=== PATIENT | male | born 1990 | race African-American/Black ===

== ENCOUNTER 2016-12-11 20:14 | Emergency (ER) | payer OTHER, MEDICAID ==
[~2016-12-11] VITALS: Ht 165.1 cm; Wt 69.0 kg
[2016-12-11 20:33] VITALS: BP 128/61
== END 2016-12-12 00:20 | disposition left against medical advice (07) ==
LOC: ER 12-12 00:19
DX: Z53.21 Procedure and treatment not carried out due to patient leaving prior to being seen by health care provider (principal)

== ENCOUNTER 2017-09-27 22:26 | Emergency (ER) | payer MEDICAID, OTHER ==
[~2017-09-27] VITALS: Ht 177.8 cm; Wt 73.0 kg
[2017-09-27 23:32] LABS: BASOPHILS % 0.8 % (0.0-2.0); EOSINOPHILS % 0.2 % (0.0-5.0); HEMATOCRIT. 43.8 % (42.0-52.0); HEMOGLOBIN. 14.8 g/dL (14.0-18.0); MEAN CORPUSCULAR HEMOGLOBIN 30.2 pg (28.0-32.0); MEAN CORPUSCULAR VOLUME 89.2 fL (80.0-94.0); MEAN PLATELET VOLUME 7.6 fl (7.4-10.4); MONOCYTES % 3.5 % (2.0-8.0); NEUTROPHILS % 36.5 % (40.0-76.0); PLATELET 341 x1000/uL (130-400); RED BLOOD CELL COUNT 4.91 mill/uL (4.7-6.1); RED CELL DISTRIBUTION WIDTH 14.3 % (11.6-14.6)
[2017-09-27 23:35] LABS: CHLORIDE 107 mEq/L (98-107)
[2017-09-27 23:43] LABS: CARBON DIOXIDE 28 mEq/L (21-32)
[2017-09-28] MEDS: SODIUM CHLORIDE 0.9% 1,000 ML IV ONE (00:48)
[2017-09-28 02:02] LABS: CLARITY URINE CLEAR (CLEAR); COLOR URINE YELLOW (YELLOW); KETONES URINE NEGATIVE (NEGATIVE); LEUKOCYTE ESTERASE URINE NEGATIVE (NEGATIVE); NITRITE URINE NEGATIVE (NEGATIVE); OCCULT BLOOD URINE NEGATIVE (NEGATIVE); PH URINE 8.5 (4.5-8.0); PROTEIN URINE NEGATIVE (NEGATIVE); SPECIFIC GRAVITY URINE 1.011 (1.005-1.030)
[2017-09-28 02:42] LABS: *AMPHETAMINES SCREEN URINE NEGATIVE (NEGATIVE); *BARBITURATES SCREEN URINE NEGATIVE (NEGATIVE); *BENZODIAZEPINES SCREEN URINE NEGATIVE (NEGATIVE); *COCAINE SCREEN URINE NEGATIVE (NEGATIVE); CANNABINOID URINE SCREEN PRESUMTIVE POSITIVE (NEGATIVE); METHADONE URINE SCREEN NEGATIVE (NEGATIVE); OPIATES URINE SCREEN NEGATIVE (NEGATIVE); PHENCYCLIDINE URINE SCREEN NEGATIVE (NEGATIVE)
[2017-09-28 15:40] VITALS: BP 127/64
== END 2017-09-28 16:04 | disposition home or self-care (01) ==
LOC: ER 22:35
DX: F10.129 Alcohol abuse with intoxication, unspecified (principal); R45.851 Suicidal ideations; F41.9 Anxiety disorder, unspecified; J45.909 Unspecified asthma, uncomplicated; F12.10 Cannabis abuse, uncomplicated; F19.10 Other psychoactive substance abuse, uncomplicated; F31.9 Bipolar disorder, unspecified; Y90.8 Blood alcohol level of 240 mg/100 ml or more
CPT/HCPCS: 36415; 80053; 80305; 80307; 80329; 81003; 85025; 96360; 99284; G0482; J7030

== ENCOUNTER 2022-01-27 15:10 | Emergency (ER) | payer MEDICAID ==
[~2022-01-27] VITALS: Ht 180.3 cm; Wt 73.0 kg
[2022-01-27] MEDS ORDERED: LORAZEPAM 2MG/ML CPJ IM ONE (16:30)
[2022-01-27 16:53] LABS: BASOPHILS % 0.6 % (0.0-2.0); EOSINOPHILS % 1.5 % (0.0-5.0); HEMATOCRIT. 38.8 % (42.0-52.0); HEMOGLOBIN. 13.3 g/dL (14.0-18.0); LYMPHOCYTES % 44.7 % (20.0-50.0); MEAN CORPUSCULAR HEMOGLOBIN 30.3 pg (28.0-32.0); MEAN CORPUSCULAR VOLUME 88.5 fL (80.0-94.0); MEAN PLATELET VOLUME 7.4 fl (7.4-10.4); MONOCYTES % 7.4 % (2.0-8.0); NEUTROPHILS % 45.8 % (40.0-76.0); PLATELET 279 x1000/uL (130-400); RED BLOOD CELL COUNT 4.39 mill/uL (4.7-6.1); RED CELL DISTRIBUTION WIDTH 15.2 % (11.6-14.6)
[2022-01-27] MEDS ORDERED: OLANZAPINE 10 MG/VIAL IM ONE (17:00)
[2022-01-27 17:57] LABS: CLARITY URINE CLOUDY (CLEAR); COLOR URINE YELLOW (YELLOW); KETONES URINE TRACE (NEGATIVE); LEUKOCYTE ESTERASE URINE NEGATIVE (NEGATIVE); NITRITE URINE NEGATIVE (NEGATIVE); OCCULT BLOOD URINE 3+ (NEGATIVE); PROTEIN URINE 1+ (NEGATIVE); SPECIFIC GRAVITY URINE 1.028 (1.005-1.030); UROBILINOGEN URINE 0.2 E.U./dL (0.2-1.0)
[2022-01-27 17:59] LABS: CHLORIDE 108 mEq/L (98-107)
[2022-01-27 18:07] LABS: ETHANOL BLOOD 88 mg/dL
[2022-01-27 18:20] LABS: *AMPHETAMINES SCREEN URINE PRESUMTIVE POSITIVE (NEGATIVE); *BARBITURATES SCREEN URINE NEGATIVE (NEGATIVE); *BENZODIAZEPINES SCREEN URINE NEGATIVE (NEGATIVE); *COCAINE SCREEN URINE NEGATIVE (NEGATIVE); CANNABINOID URINE SCREEN PRESUMTIVE POSITIVE (NEGATIVE); METHADONE URINE SCREEN NEGATIVE (NEGATIVE); OPIATES URINE SCREEN PRESUMTIVE POSITIVE (NEGATIVE); PHENCYCLIDINE URINE SCREEN NEGATIVE (NEGATIVE)
[2022-01-28] MEDS: DIVALPROEX SODIUM 500MG DR TABLET PO SCH ×2 (09:30→21:00)
[2022-01-28] MEDS: OLANZAPINE 10MG TABLET PO SCH ×2 (09:30→17:27)
[2022-01-28] MEDS ORDERED: LORAZEPAM 1MG TABLET PO ONE (17:30)
[2022-01-29] MEDS: OLANZAPINE 10MG TABLET PO SCH (09:20)
[2022-01-29] MEDS: DIVALPROEX SODIUM 500MG DR TABLET PO SCH ×2 (09:20→21:00)
[2022-01-29] MEDS: OLANZAPINE 5MG TABLET PO SCH (21:23)
[2022-01-30] MEDS ORDERED: OLANZAPINE 5MG TABLET PO SCH (09:00)
[2022-01-30] MEDS: DIVALPROEX SODIUM 500MG DR TABLET PO SCH ×2 (09:13→21:44)
[2022-01-30] MEDS: OLANZAPINE 5MG TABLET PO SCH ×2 (09:13→17:41)
[2022-01-31] MEDS: OLANZAPINE 5MG TABLET PO SCH (08:22)
[2022-01-31] MEDS: DIVALPROEX SODIUM 500MG DR TABLET PO SCH (08:22)
[2022-01-31 15:14] VITALS: BP 118/62
[2022-01-31] MEDS ORDERED: POTASSIUM CHLORIDE 20MEQ TABLET SR PO ONE (16:30)
[2022-01-31] MEDS ORDERED: OLANZAPINE 10MG TABLET PO SCH (17:00)
== END 2022-01-31 18:38 ==
LOC: ER 15:10
DX: F23 Brief psychotic disorder (principal); F15.129 Other stimulant abuse with intoxication, unspecified; F16.129 Hallucinogen abuse with intoxication, unspecified; F12.129 Cannabis abuse with intoxication, unspecified; R26.9 Unspecified abnormalities of gait and mobility; F41.9 Anxiety disorder, unspecified; F10.129 Alcohol abuse with intoxication, unspecified; Y90.4 Blood alcohol level of 80-99 mg/100 ml; F32.A Depression, unspecified; R45.851 Suicidal ideations; R45.850 Homicidal ideations; J45.909 Unspecified asthma, uncomplicated; Z20.822 Contact with and (suspected) exposure to COVID-19; Z75.1 Person awaiting admission to adequate facility elsewhere; Z78.1 Physical restraint status
CPT/HCPCS: 36415; 80053; 80305; 80307; 80320; 80329; 81003; 85025; 87426; 96372; 99291; C9803; J2060; J3490; U0003; U0005; G0480